=== PATIENT | male | born 1960 | race American Indian/Alaskan Native ===

== ENCOUNTER 2018-06-21 04:47 | Inpatient (IN) | payer OTHER | END 2018-06-21 18:03 | disposition left against medical advice (07) | DRG 127 | LOC: C.ER 04:47 → C.9E 06:27 → C.5S 07:00 | DX: I11.0 Hypertensive heart disease with heart failure (principal); E11.65 Type 2 diabetes mellitus with hyperglycemia; D64.9 Anemia, unspecified; E78.00 Pure hypercholesterolemia, unspecified; G89.29 Other chronic pain; M54.9 Dorsalgia, unspecified ==